=== PATIENT | male | born 1945 | race American Indian/Alaskan Native ===

== ENCOUNTER 2022-12-09 15:09 | Emergency (ER) | payer MEDICARE ==
[2022-12-09 15:27] VITALS: BP 166/84; PULSE 100; RESP 20; TEMP 97.5; BMI 19.4
[2022-12-09] MEDS ORDERED: DIPHTH,PERTUSS(ACELL),TET 0.5 ML DISP.SYRIN IM ONE ×2 (16:23→16:27)
[2022-12-09] MEDS ORDERED: ACETAMINOPHEN 325 MG TABLET (FP) PO ONE (17:49)
[2022-12-09] MEDS ORDERED: ACETAMINOPHEN 325 MG TABLET (FP) ONE (17:52)
== END 2022-12-09 18:50 | disposition home or self-care (01) ==
LOC: JER 15:09
PROC: 0HQ0XZZ Repair Scalp Skin, External Approach (ICD-10-PCS; principal; 2022-12-09)
PROC: 3E0234Z Introduction of Serum, Toxoid and Vaccine into Muscle, Percutaneous Approach (ICD-10-PCS; 2022-12-09)
DX: S01.01XA Laceration without foreign body of scalp, initial encounter (principal); S60.511A Abrasion of right hand, initial encounter; S60.512A Abrasion of left hand, initial encounter; S00.81XA Abrasion of other part of head, initial encounter; W13.8XXA Fall from, out of or through other building or structure, initial encounter; Y93.H2 Activity, gardening and landscaping; Y92.008 Other place in unspecified non-institutional (private) residence as the place of occurrence of the external cause
CPT/HCPCS: 12001-25; 70450-TC; 90471; 90715; 99284-25

== ENCOUNTER 2022-12-16 13:50 | Emergency (ER) | payer MEDICARE ==
[2022-12-16 14:27] VITALS: PULSE 73; RESP 16; BMI 19.4
[2022-12-16 14:31] VITALS: BP 160/72
== END 2022-12-16 16:39 | disposition home or self-care (01) ==
LOC: JERFT 13:50 → JER 13:50 → JERFT 16:39
DX: Z48.02 Encounter for removal of sutures (principal)
CPT/HCPCS: 99281-25